=== PATIENT | female | born 1960 | race Caucasian/White ===

== ENCOUNTER 2016-09-21 10:54 | Emergency (ER) | payer BC ==
[~2016-09-21] VITALS: Ht 165.1 cm; Wt 137.5 kg
[~2016-09-21 10:54] MED LIST: ASPI-664 PO; BUDE6HFA INHALATION; CARV6.2579 PO; CYCL-319 PO; ERGO500014 PO; FURO40TA4 PO; GLIM2TAB PO; HYDR-3498 PO; HYDR-902 PO; IBUP-1542 PO; IBUP800T25 PO; SITA1TAB7 PO
[2016-09-21 11:02] VITALS: Ht 165.1 cm; Wt 137.5 kg
[2016-09-21] MEDS ORDERED: KETOROLAC 60 MG INJ IM STA (12:17)
[2016-09-21] MEDS ORDERED: HYDROCODONE/APAP (10/325) TAB PO ONE (12:30)
--- NOTE | 2016-09-21 13:47 | RADRPT ---
PROCEDURE: Left wrist radiographs. CLINICAL INDICATION: Trauma. Left wrist pain. TECHNIQUE: Four views. Frontal, lateral, and obliques. COMPARISON: No prior studies are available for comparison. FINDINGS: There is a possible nondisplaced fracture of the waist of the scaphoid. There is no other fracture or dislocation. The soft tissues are normal. Articular surfaces are intact. There is no lytic or blastic lesion. There is no radiopaque foreign body. IMPRESSION: 1. Possible nondisplaced fracture of the waist of the scaphoid. 2. Otherwise normal images of the left wrist. RPTAT: QQ .Adama Ly MD, MD Date Time Electronically viewed and signed by .Adama Ly MD, on 09/21/2016 13:47 .R/
[2016-09-21] MEDS ORDERED: HYDR-902 PO (14:05)
[2016-09-21] MEDS ORDERED: IBUP800T25 PO (14:05)
--- NOTE | 2016-09-21 14:10 | ERD ---
ER Documentation Chief Complaint Date/Time DATE: 09/21/16 TIME: 14:07 Chief Complaint PT with L arm X 4 DAYS, no injury reported. HPI This 56-year-old female presents with pain in the left wrist for last 4 days. She has a history of trauma or fall. She denies any repetitive motion. She denies any fevers, additional symptoms. She denies any inciting events. She has a history of arthritis. ROS All systems reviewed and are negative except as per history of present illness. Medications Home Meds Active Scripts Ibuprofen* (Motrin*) 800 Mg Tab, 800 MG PO Q6, #20 TAB Prov:ALICE ARMSTRONG MD 09/21/16 Hydrocodone/Acetaminophen ([place] 10-325 Tablet) 1 Each Tablet, 1 TAB PO Q6H Y for PAIN, #15 TAB Prov:ALICE ARMSTRONG MD 09/21/16 Ibuprofen* (Motrin*) 600 Mg Tab, 600 MG PO Q6, #20 TAB Prov:ALICE ARMSTRONG MD 12/30/15 Cyclobenzaprine Hcl* (Cyclobenzaprine Hcl*) 10 Mg Tablet, 10 MG PO TID, #30 TAB Prov:ALICE ARMSTRONG MD 12/10/15 Ibuprofen* (Motrin*) 800 Mg Tab, 800 MG PO Q6, #30 TAB Prov:ALICE ARMSTRONG MD 12/10/15 Hydrocodone/Acetaminophen ([place] 10-325 Tablet) 1 Each Tablet, 1 TAB PO Q6H Y for PAIN, #15 TAB Prov:ALICE ARMSTRONG MD 12/10/15 Hydrocodone Bit-Acetaminophen* ([place]*) 5-325 Mg Tab, 1 TAB PO Q6 Y for PAIN, # 12 TAB Prov:FAWN CANTRELL DO 10/25/15 Ibuprofen* (Motrin*) 800 Mg Tab, 800 MG PO Q6H Y for PAIN AND OR ELEVATED TEMP, #30 TAB Prov:FAWN CANTRELL DO 10/25/15 Reported Medications Ergocalciferol* (Drisdol* (Vitamin D2)) 50,000 Unit Capsule, 83502 UNIT PO Q7D, CAP 10/25/15 Glimepiride* (Glimepiride*) 2 Mg Tablet, 2 MG PO WITH BREAKFAST DINNE, TAB 10/25/15 Budesonide-Formoterol Fumarate* (Symbicort*) 160-4.5 Hfa.aer.ad, 2 PUFF INHALATION BID, #1 EACH 10/25/15 Carvedilol* (Carvedilol*) 6.25 Mg Tablet, 6.25 MG PO BID, #60 TAB 10/25/15 Furosemide* (Furosemide*) 40 Mg Tablet, 40 MG PO BID, TAB 06/17/14 Sitagliptin Phos-Metformin Hcl (Janumet) 50-1,000 Mg Tablet, 1 TAB PO BID WITH MEALS, TAB 12/01/13 Aspirin* (Aspirin* EC) 81 Mg Tablet.dr, 81 MG PO QHS, TAB 12/01/13 Allergies Allergies: Coded Allergies: No Known Drug Allergy (Verified Allergy, Unknown, NONE, 12/10/15) PMhx/Soc History of Surgery: No Anesthesia Reaction: No Hx Neurological Disorder: No Hx Respiratory Disorders: No Hx Cardiac Disorders: No Hx Psychiatric Problems: No Hx Miscellaneous Medical Probl: No Hx Alcohol Use: No Hx Substance Use: No Hx Tobacco Use: No Smoking Status: Never smoker Physical Exam Vitals Vital Signs Date Time Temp Pulse Resp B/P Pulse Ox O2 Delivery O2 Flow Rate FiO2 09/21/16 11:02 98.1 92 16 130/67 94 Physical Exam Const: [] Alert, [id number] per Head: Atraumatic Eyes: Normal Conjunctiva ENT: Normal External Ears, Nose and Mouth. Neck: Full range of motion..~ No meningismus. Resp: Clear to auscultation bilaterally Cardio: Regular rate and rhythm, no murmurs Abd: Soft, non tender, non distended. Normal bowel sounds Skin: No petechiae or rashes Back: No midline or flank tenderness Ext: No cyanosis, or edema. Generalized tenderness around the left wrist joint. There is no warmth, erythema. There is no snuffbox tenderness. There is no evidence of ischemia. There is restricted range of motion due to pain but no appreciable deficits in the radial median ulnar nerve Neur: Awake and alert Psych: Normal Mood and Affect Results 24 hrs Current Medications Medications (Trade) Dose Ordered Sig/Veena Route PRN Reason Start Time Stop Time Status Last Admin Dose Admin Acetaminophen/ Hydrocodone Bitart ([place] (325)) 1 tab ONCE ONCE PO 09/21/16 12:30 09/21/16 12:31 DC 09/21/16 12:24 Ketorolac Tromethamine (Toradol) 60 mg ONCE STAT IM 09/21/16 12:17 09/21/16 12:19 DC 09/21/16 12:23 Procedures/MDM X-ray Wrist 3V Interpreted by me: Scaphoid: [Normal] Bones: There is a mention of possible nondisplaced scaphoid waist fracture but may be normal variant. Joints: [No dislocation] Foreign body: [None]. Impression-no acute findings except for clinical correlation suggested for scaphoid waist abnormality. Patient presents with acute left wrist pain which is nontraumatic. There is no evidence of acute fracture given the mechanism of her history. There is no evidence to suggest septic arthritis, ischemia. She may have acute tendinitis. She will be treated with short course of [place] and ibuprofen. Patient was placed in a left wrist Velcro brace patient is nervous intact after the brace. Patient will be discharged home with orthopedic and primary care follow-up. She should return for fevers, redness, new symptoms. Departure Diagnosis: Primary Impression: Pain of left arm Condition: Stable Patient Instructions: Arthralgia, Tendonitis Referrals: ARACELI DELGADO MD [facility] Additional Instructions: X-rays show no acute findings. APPLY AICE AT HOME. There is a note of possible fracture but doubt given absence of trauma. See orthopedist for follow-up. Keep wrist immobilized if in pain. ALICE ARMSTRONG MD Sep 21, 2016 14:09
[2016-09-22] MEDS ORDERED: GLIM4TAB PO (09:47)
[2016-09-22] MEDS ORDERED: LOSA25TA5 PO (09:48)
[2016-09-22] MEDS ORDERED: FURO40TA4 PO (09:48)
[2016-09-22] MEDS ORDERED: CARV25TA79 PO (09:49)
== END 2016-09-21 14:38 | disposition home or self-care (01) ==
LOC: FTE 10:54
DX: M79.602 Pain in left arm (principal); Z79.82 Long term (current) use of aspirin; Z79.84 Long term (current) use of oral hypoglycemic drugs
CPT/HCPCS: 29125; 73110; 96372; J1885; Z7502; Z7610

== ENCOUNTER 2016-09-22 08:51 | Day surgery (SDC) | payer BC ==
[~2016-09-22] VITALS: Ht 165.1 cm; Wt 139.0 kg
[~2016-09-22 08:51] MED LIST changes: +LACTATED RINGER'S 1,000 ML IV SCH
--- NOTE | 2016-09-22 09:40 | RADRPT ---
PROCEDURE: Chest x-ray CLINICAL INDICATION: Preop TECHNIQUE: Chest single view COMPARISON: 10/25/2015 FINDINGS: There is stable mild cardiomegaly. The central pulmonary vessels are borderline prominent. The wayne gs are clear. The costophrenic angles are sharp. The visualized bony thorax is unremarkable. IMPRESSION: 1. Stable mild cardiomegaly. 2. Central pulmonary vessels borderline prominent RPTAT: HH .Low Tejeda MD, MD Date Time Electronically viewed and signed by .Low Tejeda MD, on 09/22/2016 09:39 .W/
[2016-09-22] MEDS ORDERED: GLIM4TAB PO (09:47)
[2016-09-22] MEDS ORDERED: LOSA25TA5 PO (09:48)
[2016-09-22] MEDS ORDERED: FURO40TA4 PO (09:48)
[2016-09-22] MEDS ORDERED: CARV25TA79 PO (09:49)
[2016-09-22] MEDS ORDERED: DIPHENHYDRAMINE 50 MG INJ IV PRN (10:00)
[2016-09-22] MEDS ORDERED: ONDANSETRON 4 MG INJ IV PRN (10:00)
[2016-09-22] MEDS ORDERED: HYDROmorphONE (0.2 MG/ML) 10ML SYG IV PRN ×2 (10:00)
[2016-09-22] MEDS ORDERED: PROCHLORPERAZINE 10 MG INJ IV PRN (10:00)
[2016-09-22] MEDS ORDERED: MEPERIDINE 25 MG INJ IV PRN (10:00)
[2016-09-22 10:37] VITALS: Ht 165.1 cm; Wt 139.0 kg
[2016-09-22 10:41] VITALS: BP 144/70; PULSE 76; RESP 20
[2016-09-22 10:50] LABS: ADD SCAN DIFF NO
[2016-09-22 10:54] LABS: BASOPHIL # 0.1 10^3/ul (0.0-0.1); BASOPHILS % 0.8 % (0.0-2.0); EOSINOPHILS # 0.2 10^3/ul (0.0-0.5); EOSINOPHILS % 2.2 % (0.0-7.0); HEMATOCRIT 37.8 % (37.0-47.0); HEMOGLOBIN 12.1 g/dl (12.0-16.0); LYMPHOCYTES # 2.2 10^3/ul (0.8-2.9); LYMPHOCYTES % 24.4 % (15.0-51.0); MEAN CORPUSCULAR HEMOGLOBIN 28.3 pg (29.0-33.0); MEAN CORPUSCULAR VOLUME 88.3 fl (82.0-101.0); MEAN PLATELET VOLUME 10.9 fl (7.4-10.4); MONOCYTE # 0.8 10^3/ul (0.3-0.9); MONOCYTES % 9.1 % (0.0-11.0); NEUTROPHIL # 5.6 10^3/ul (1.6-7.5); NEUTROPHILS % 63.1 % (39.0-77.0); PLATELET COUNT 252 10^3/UL (140-415); RED BLOOD COUNT 4.28 10^6/ul (4.20-5.40); RED CELL DISTRIBUTION WIDTH 14.3 % (11.5-14.5); WHITE BLOOD COUNT 8.9 10^3/ul (4.8-10.8)
[2016-09-22 11:11] LABS: ALBUMIN 4.6 g/dl (3.3-4.9); ALBUMIN/GLOBULIN RATIO 1.39; BILIRUBIN,INDIRECT 0.3 mg/dl (0-1.1); BILIRUBIN,TOTAL 0.3 mg/dl (0.2-1.3); TOTAL PROTEIN 7.9 g/dl (6.1-8.1)
[2016-09-22 11:23] LABS: CALCIUM 9.4 mg/dl (8.4-10.2); CREATININE 0.54 mg/dl (0.44-1.00); POTASSIUM 4.2 mmol/L (3.5-5.1)
--- NOTE | 2016-09-22 17:19 | RADRPT ---
Vent Rate: 77 bpm RR Interval: 0 msec VA Interval: 174 msec QRS Duration: 82 msec QT Interval: 368 msec QTC Interval: 416 msec P-R-T [place]: 54 - 54 - 40 degrees Normal sinus rhythm Normal ECG Electronically Signed By: Randall Chris [id number]
== END 2016-09-22 13:15 | disposition home or self-care (01) ==
LOC: EDBD → SDS 08:51
PROVIDERS: ATTEND Obstetrics & Gynecology
DX: N93.8 Other specified abnormal uterine and vaginal bleeding (principal); Z53.9 Procedure and treatment not carried out, unspecified reason
CPT/HCPCS: 71010; 80053; 82962; 85025; 86850; 86900; 86901; 93005

== ENCOUNTER 2017-07-06 05:46 | Day surgery (SDC) | END 2017-07-06 08:08 | disposition home or self-care (01) ==

== ENCOUNTER 2018-06-24 16:12 | Emergency (ER) | payer BC ==
[~2018-06-24] VITALS: Ht 165.1 cm; Wt 127.0 kg
[~2018-06-24 16:12] MED LIST changes: -ASPI-664 PO; +ASPI-817 PO; -BUDE6HFA INHALATION; +CARV25TA79 PO; -CARV6.2579 PO; -CYCL-319 PO; -ERGO500014 PO; -GLIM2TAB PO; +GLIM4TAB PO; -HYDR-3498 PO; -HYDR-902 PO; -IBUP-1542 PO; -IBUP800T25 PO; +IBUP800T48 PO; -LACTATED RINGER'S 1,000 ML IV SCH; +LOSA25TA12 PO
[2018-06-24 16:16] VITALS: Ht 165.1 cm; Wt 127.0 kg
[2018-06-24] MEDS ORDERED: KETOROLAC 60 MG INJ IM STA (17:32)
[2018-06-24] MEDS ORDERED: ACETAMINOPHEN 325 MG TAB PO ONE (18:00)
[2018-06-24] MEDS ORDERED: PROMETHAZINE/CODEINE 5ML CUP PO ONE (18:00)
[2018-06-24] MEDS ORDERED: PROM5SYR2 PO (18:30)
[2018-06-24] MEDS ORDERED: AMOX500C2 PO (18:30)
[2018-06-24] MEDS ORDERED: IBUP-1542 PO (18:30)
--- NOTE | 2018-06-24 18:35 | ERD ---
ER Documentation Chief Complaint Chief Complaint pt is bib self with c/o "flu" cough, sore throat for 3 days HPI 58-year-old female presents with sore throat for last 3 days. She also has fever. She has dry cough as well. She has pain in the throat when she coughs. She has no abdominal pain, sustained chest pain, shortness of breath. ROS All systems reviewed and are negative except as per history of present illness. Medications Home Meds Active Scripts Ibuprofen* (Motrin*) 600 Mg Tab, 600 MG PO Q6, #15 TAB Prov:ALICE ARMSTRONG MD 06/24/18 Promethazine HCl/Codeine (Prometh-Codein 6.25-10 mg/5 ml) 5 Ml Syrup, 5 ML PO QID for 7 Days 6 oz Prov:ALICE ARMSTRONG MD 06/24/18 Amoxicillin* (Amoxicillin*) 500 Mg Cap, 500 MG PO TID for 10 Days, CAP Prov:ALICE ARMSTRONG MD 06/24/18 Ibuprofen* (Motrin*) 800 Mg Tab, 800 MG PO Q6, #30 TAB Prov:ALICE ARMSTRONG MD 12/10/15 Reported Medications Carvedilol* (Carvedilol*) 25 Mg Tablet, 25 MG PO BID, #60 TAB 09/22/16 Furosemide* (Furosemide*) 40 Mg Tablet, 40 MG PO DAILY, TAB 09/22/16 Losartan Potassium* (Losartan Potassium*) 25 Mg Tablet, 25 MG PO DAILY, TAB 09/22/16 Glimepiride* (Glimepiride*) 4 Mg Tablet, 4 MG PO WITH BREAKFAST, TAB 09/22/16 Sitagliptin Phos-Metformin Hcl (Janumet) 50-1,000 Mg Tablet, 1 TAB PO BID WITH MEALS, TAB 12/01/13 Aspirin* (Aspirin* EC) 81 Mg Tablet.dr, 81 MG PO QHS, TAB 12/01/13 Allergies Allergies: Coded Allergies: No Known Drug Allergy (Verified Allergy, Unknown, NONE, 09/22/16) PMhx/Soc History of Surgery: No Anesthesia Reaction: No Hx Neurological Disorder: No Hx Respiratory Disorders: No Hx Cardiac Disorders: Yes (HTN) Hx Psychiatric Problems: No Hx Miscellaneous Medical Probl: No Hx Alcohol Use: No Hx Substance Use: No Hx Tobacco Use: No Smoking Status: Never smoker Physical Exam Vitals Vital Signs Date Temp Pulse Resp B/P (MAP) Pulse Ox O2 O2 Flow FiO2 Time Delivery Rate 06/24/18 100.9 92 24 129/71 98 16:16 (90) Physical Exam Const: No acute distress. Uncomfortable due to coughing and sore throat. Morbid obesity. Head: Atraumatic Eyes: Normal Conjunctiva ENT: Normal External Ears, Nose and Mouth. Uvula midline and airway patent. Tonsils 3+ with erythema. No exudate. Neck: Full range of motion. No meningismus. Resp: Clear to auscultation bilaterally. Coarse cough without rales, wheezing or retractions. Cardio: Regular rate and rhythm, no murmurs Abd: Soft, non tender, non distended. Normal bowel sounds Skin: No petechiae or rashes Back: No midline or flank tenderness Ext: No cyanosis, or edema Neur: Awake and alert Psych: Normal Mood and Affect Results 24 hrs Current Medications Medications Dose Sig/Veena Start Time Status Last (Trade) Ordered Route PRN Stop Time Admin Dose Reason Admin Ketorolac 60 mg ONCE STAT 06/24/18 DC 06/24/18 Tromethamine IM 17:32 17:50 (Toradol) 06/24/18 17:34 Promethazine 10 ml ONCE ONCE 06/24/18 DC 06/24/18 HCl/ PO 18:00 17:50 Codeine 06/24/18 18:01 (Phenergan/ Codeine) 650 mg ONCE ONCE 06/24/18 DC 06/24/18 Acetaminophen PO 18:00 17:49 (Tylenol 06/24/18 18:01 Tab) Procedures/MDM Influenza swab negative. Chest X-ray 1V Interpreted by me: Soft Tissue: No acute abnormalities Bones: No acute abnormalities Mediastinum/Cardiac Silhouette/Lungs: No acute abnormalities. Impression- normal 1 view chest x-ray Patient presents with URI symptoms and sore throat for the last 3 days. Given findings on exam and negative flu swab we will treat empirically with amoxicillin, ibuprofen, and promethazine cough syrup. She was given 1 dose of promethazine cough syrup here as well as Toradol 60 mg IM. The patient was stable with no new complaints during the ER course. Clinically, there is no current evidence to suggest meningitis, sepsis, acute abdomen, pneumonia, stroke, acute coronary syndrome, pulmonary embolism, aortic dissection or any other emergent condition appearing to require further evaluation or hospitalization. Patient counseled regarding my diagnostic impression and care plan. Prior to discharge all questions answered. Pt agrees with treatment plan and understands strict return precautions. Pt is instructed to follow up with primary care provider within 24-48 hours. Precautionary instructions provided including instructions to return to the ER if not improving or for any worsening or changing symptoms or concerns. Departure Diagnosis: Primary Impression: Upper respiratory infection URI type: unspecified URI Qualified Codes: J06.9 - Acute upper respiratory infection, unspecified Additional Impression: Influenza-like symptoms Condition: Stable Patient Instructions: Fever Control (Adult), Pharyngitis, Strep (Presumed) Referrals: DANA NAVARRO (PCP) Additional Instructions: X-ray and flu test negative. We will treat for infection and throat but may be viral illness. Recheck for new or worsening symptoms with primary care doctor. vamos a tratara para infeccion en [place], kris posiblamente un virus que dura 2-4 ervin. cheque otro vez en el proximo tony para mas simptomas- vomito, dolor, susy, problemas con respirando, o con fry doctor primario. ALICE ARMSTRONG MD Jun 24, 2018 18:35
[2018-06-24 18:50] VITALS: BP 142/66; PULSE 84; RESP 20
== END 2018-06-24 18:50 | disposition home or self-care (01) ==
LOC: FTE 16:12
DX: J06.9 Acute upper respiratory infection, unspecified (principal); I10 Essential (primary) hypertension; J02.9 Acute pharyngitis, unspecified; Z79.82 Long term (current) use of aspirin; Z79.84 Long term (current) use of oral hypoglycemic drugs
CPT/HCPCS: 71045; 87400; 96372; J1885; Z7502; Z7610

== ENCOUNTER 2018-12-06 11:04 | Day surgery (SDC) | payer BC ==
[2018-12-06] VITALS (19 sets, daily range): BP systolic 108–132; BP diastolic 58–74; PULSE 72–86; RESP 12–22; Ht 160 cm; Wt 120.5 kg
[~2018-12-06] VITALS: Ht 160 cm; Wt 120.5 kg
[~2018-12-06 11:04] MED LIST changes: +AMOX500C2 PO; +ASPI81TA52 PO; +EMPA10TA PO; -GLIM4TAB PO; +GLIM4TAB3 PO; +IBUP-1542 PO; +IRBE150T21 PO; +PROM5SYR2 PO; +SITA1TAB5 PO
[2018-12-06] MEDS ORDERED: SOD CHLORIDE 0.9% 1,000 ML IV SCH (12:30)
[2018-12-06] MEDS ORDERED: EPHEDrine 25 MG/5 ML SYG ONE (13:00)
[2018-12-06] MEDS ORDERED: LIDOCAINE 2% (SDV) 5 ML INJ ONE (13:02)
[2018-12-06] MEDS ORDERED: PROPOFOL 20 ML ONE (13:02)
[2018-12-06] MEDS ORDERED: CEFAZOLIN 1 GM INJ ONE (13:40)
[2018-12-06] MEDS ORDERED: FENTAnyl 50 MCG/ML VIAL IV PRN ×2 (14:30)
[2018-12-06] MEDS ORDERED: ONDANSETRON 4 MG INJ IV PRN (14:30)
[2018-12-06] MEDS ORDERED: METOCLOPRAMIDE 10 MG INJ IV PRN (14:30)
[2018-12-06] MEDS ORDERED: MIDAZOLAM 1 MG/ML 2 ML INJ IV PRN (14:30)
[2018-12-06] MEDS ORDERED: hydrALAzine 20 MG INJ IV PRN (14:30)
[2018-12-06] MEDS ORDERED: LABETALOL HCL 20MG INJ IV PRN (14:30)
[2018-12-06] MEDS ORDERED: EPHEDrine 25 MG/5 ML SYG IV PRN (14:30)
[2018-12-06] MEDS ORDERED: DIPHENHYDRAMINE 50 MG INJ IV PRN (14:30)
[2018-12-06] MEDS ORDERED: OXYCODONE/ACETAMINOPHEN (5/325) TAB PO PRN ×2 (14:30)
[2018-12-06] MEDS ORDERED: MEPERIDINE 25 MG INJ IV PRN (14:30)
[2018-12-06] MEDS ORDERED: MIDAZOLAM 1 MG/ML 2 ML INJ ONE (14:33)
[2018-12-06] MEDS ORDERED: ONDANSETRON 4 MG INJ ONE (14:48)
[2018-12-06] MEDS ORDERED: FENTAnyl 50 MCG/ML VIAL ONE (14:48)
[2018-12-06] MEDS ORDERED: MEPERIDINE 25 MG INJ ONE (14:48)
[2018-12-06] MEDS: FENTAnyl 50 MCG/ML VIAL IV PRN ×2 (15:29→15:36)
== END 2018-12-06 17:08 | disposition home or self-care (01) ==
LOC: SDS 11:04
PROVIDERS: ATTEND Obstetrics & Gynecology
DX: N84.0 Polyp of corpus uteri (principal); I10 Essential (primary) hypertension; E11.9 Type 2 diabetes mellitus without complications; E66.01 Morbid (severe) obesity due to excess calories; Z68.42 Body mass index [BMI] 45.0-49.9, adult; Z79.82 Long term (current) use of aspirin
CPT/HCPCS: 58558; 82962; 88305; J0690; J2175; J2250; J2405; J3010; Z7512; Z7610